=== PATIENT | male | born 1950 | race African-American/Black ===

== ENCOUNTER 2018-08-14 06:11 | Day surgery (SDC) | payer MEDICARE, OTHER ==
[~2018-08-14] VITALS: Ht 170.2 cm; Wt 40.0 kg
[~2018-08-14 06:11] MED LIST: ALBU2TAB42 PO; ALBU8.5H8 IH; BACL10TA PO; CALC1TAB93 PO; FLUT110HFA IH; FLUT16H NASAL; FURO20 PO; LEVAHFA IH; MONT10TA21 PO; OMEP20 PO; PHEN32.43 PO; PHEN97.29 PO; POTA8TAB4 PO; PRED10 PO; VERA180T12 PO; ZOLP10TA7 PO; [UNRECOGNIZED DRUG - CODE] PO
[2018-08-14] MEDS ORDERED: EPINEPHrine 1:10,000 [1 MG/10 ML] SYRINGE IVP ONE (06:12)
[2018-08-14] MEDS ORDERED: LIDOCAINE 4% 50 ML SOLUTION TP ONE (06:12)
[2018-08-14] MEDS ORDERED: LIDOCAINE 2% 30 ML JELLY TP ONE (06:12)
[2018-08-14] MEDS ORDERED: BENZOCAINE 20% 50 MCG/SPRAY 57 GM TP ONE (06:12)
[2018-08-14] MEDS ORDERED: SODIUM CHLORIDE 0.9% 1,000 ML IV ONE ×2 (06:18→07:30)
[2018-08-14] MEDS ORDERED: FLUT16H NASAL (06:45)
[2018-08-14] MEDS ORDERED: PRED15SO12 GT (06:45)
[2018-08-14] MEDS ORDERED: BUDE10.2 IH (06:45)
[2018-08-14] MEDS ORDERED: CITA10TA68 GT (06:45)
[2018-08-14] MEDS ORDERED: CARB-37 GT (06:45)
[2018-08-14] MEDS ORDERED: ALBU8HFA PO (06:45)
[2018-08-14] MEDS ORDERED: AZITH2005L GT (06:45)
[2018-08-14] MEDS ORDERED: RANI-257 GT (06:45)
[2018-08-14] MEDS ORDERED: ESCI10TA GT (06:45)
[2018-08-14] MEDS ORDERED: MIDAZOLAM HCL 2 MG/2 ML VIAL ONE (07:14)
[2018-08-14] MEDS ORDERED: FentaNYL CITRATE-PF 100 MCG/2 ML VIAL ONE (07:14)
[2018-08-14] MEDS ORDERED: MethylPREDNISolone SOD SUCC 125 MG/2 ML VIAL IVP ONE (08:30)
[2018-08-14] MEDS ORDERED: MethylPREDNISolone SOD SUCC 125 MG/2 ML VIAL ONE (09:00)
== END 2018-08-14 10:20 | disposition home or self-care (01) ==
LOC: SURGERY 06:11
PROVIDERS: ATTEND Internal Medicine Critical Care Medicine
DX: J38.4 Edema of larynx (principal); B37.0 Candidal stomatitis; Z87.891 Personal history of nicotine dependence; Z98.890 Other specified postprocedural states; J44.9 Chronic obstructive pulmonary disease, unspecified
CPT/HCPCS: 31623; 31624; 71045; 87015; 87070; 87101; 87206; 87220; 88108; 88312; 93005; J0171; J2250; J2930; J3010; J7030